=== PATIENT | male | born 1985 | race African-American/Black ===

== ENCOUNTER 2019-10-10 23:52 | Emergency (ER) | payer BC, MEDICAID ==
[~2019-10-10] VITALS: Ht 177.8 cm; Wt 117.0 kg
[2019-10-11 02:56] LABS: BASOPHILS % 1.2 % (0.0-2.0); HEMATOCRIT. 42.3 % (42.0-52.0); HEMOGLOBIN. 14.4 g/dL (14.0-18.0); LYMPHOCYTES % 42.8 % (20.0-50.0); MEAN CORPUSCULAR HEMOGLOBIN 27.6 pg (28.0-32.0); MEAN CORPUSCULAR VOLUME 81.1 fL (80.0-94.0); MEAN PLATELET VOLUME 10.3 fl (7.4-10.4); MONOCYTES % 6.4 % (2.0-8.0); NEUTROPHILS % 46.6 % (40.0-76.0); PLATELET 221 x1000/uL (130-400); RED BLOOD CELL COUNT 5.22 mill/uL (4.7-6.1); RED CELL DISTRIBUTION WIDTH 14.7 % (11.6-14.6)
[2019-10-11 02:57] LABS: CHLORIDE 108 mEq/L (98-107)
[2019-10-11 03:00] LABS: PROTHROMBIN TIME 10.7 sec (9.6-11.0)
[2019-10-11 04:01] LABS: CLARITY URINE CLEAR (CLEAR); COLOR URINE YELLOW (YELLOW); KETONES URINE NEGATIVE (NEGATIVE); LEUKOCYTE ESTERASE URINE TRACE (NEGATIVE); NITRITE URINE NEGATIVE (NEGATIVE); OCCULT BLOOD URINE NEGATIVE (NEGATIVE); PH URINE 6.5 (4.5-8.0); PROTEIN URINE NEGATIVE (NEGATIVE); SPECIFIC GRAVITY URINE 1.016 (1.005-1.030)
[2019-10-11] MEDS: CYCLOBENZAPRINE 10MG TABLET PO ONE (04:29)
[2019-10-11] MEDS: ACETAMINOPHEN WITH CODEINE 300/30MG TABLET PO ONE (04:30)
[2019-10-11 05:55] VITALS: BP 163/111
== END 2019-10-11 06:35 | disposition home or self-care (01) ==
LOC: ER 23:52
DX: M25.561 Pain in right knee (principal); M54.9 Dorsalgia, unspecified; I10 Essential (primary) hypertension; F17.200 Nicotine dependence, unspecified, uncomplicated
CPT/HCPCS: 36415; 73562; 80053; 81003; 85025; 99284; L1830